=== PATIENT | male | born 1945 | race African-American/Black ===

== ENCOUNTER → 2019-08-03 | Outpatient (CLI) | payer OTHER, BC ==
[~2019-08-03] MED LIST: ALLOPURINOL 30300 M2 PO; AMLODIPINE BESYL5 MG PO; CIPROFLOXACIN250 M2 PO; COLCHICINE 0.60.6 M1 PO; ELIQUIS2.5 MG PO; FUROSEMIDE 80 M80 M1 PO; IRON236 MG PO; KLOR-CON 10 ER10 MEQ PO; LEVOTHYROXIN0.112 M1 PO; NEXIUM40 MG PO; OXYCODONE20 MG/1 M1 PO; QUINAPRIL 20 MG20 MG PO; TOPROL XL200 MG PO; VITAMIN D32000 UNIT PO
== END ==
LOC: RAD 09:03
PROVIDERS: ATTEND Family Medicine
DX: M47.817 Spondylosis without myelopathy or radiculopathy, lumbosacral region (principal); M51.27 Other intervertebral disc displacement, lumbosacral region; M25.78 Osteophyte, vertebrae

== ENCOUNTER → 2020-08-22 | Outpatient (CLI) | payer OTHER | LOC: ULTRA 14:47 | PROVIDERS: ATTEND Nurse Practitioner | DX: M79.89 Other specified soft tissue disorders (principal) ==